=== PATIENT | female | born 1995 | race African-American/Black ===

== ENCOUNTER 2023-03-11 12:15 | Emergency (ER) | payer BC ==
[~2023-03-11] VITALS: Ht 162.6 cm; Wt 104.3 kg
[~2023-03-11 12:15] MED LIST: AMOX-430 PO; TRAM50TA2 PO
[2023-03-11 13:33] VITALS: BP 164/99; TEMP 98; O2SAT 100
== END 2023-03-11 14:55 | disposition home or self-care (01) ==
LOC: ER 12:25
DX: Z48.02 Encounter for removal of sutures (principal); Z91.018 Allergy to other foods